=== PATIENT | female | born 1975 | race Caucasian/White ===

== ENCOUNTER 2017-08-15 12:14 | Day surgery (SDC) | payer BC ==
[~2017-08-15] VITALS: Ht 157.5 cm; Wt 80.6 kg
[~2017-08-15 12:14] MED LIST: BUPIVACAINE/PF-EPI 0.25% 1:200K ONE
[2017-08-15 12:52] VITALS: BP 167/108
[2017-08-15] MEDS ORDERED: ACET-1600 PO (12:52)
[2017-08-15] MEDS ORDERED: IBUP-1223 PO (12:52)
[2017-08-15] MEDS ORDERED: LACTATED RINGERS 1,000 ML IV SCH (12:54)
[2017-08-15 13:00] LABS: HCG UR OBC PASS
[2017-08-15 13:11] VITALS: BP 151/102
[2017-08-15] MEDS ORDERED: ROCURONIUM 10 MG/ML ONE (14:12)
[2017-08-15] MEDS ORDERED: ONDANSETRON 2MG/ML, 2ML ONE (14:12)
[2017-08-15] MEDS ORDERED: KETOROLAC 30 MG/1 ML ONE (14:12)
[2017-08-15] MEDS ORDERED: SUCCINYLCHOLINE 20 MG/ML, 10ML ONE (14:12)
[2017-08-15] MEDS ORDERED: PROPOFOL 10 MG/ML, 20ML ONE (14:12)
[2017-08-15] MEDS ORDERED: DEXAMETHASONE 4 MG/ML, 1ML ONE (14:12)
[2017-08-15] MEDS: FENTANYL PF 100 MCG/2ML IV PRN ×4 (15:25→16:04)
[2017-08-15] MEDS ORDERED: MIDAZOLAM 1 MG/ML, 2ML ONE ×2 (15:28→15:38)
[2017-08-15] MEDS ORDERED: ACETAMINOPHEN 650 MG/20.3 ML UDC ONE (15:28)
[2017-08-15] MEDS ORDERED: FENTANYL PF 100 MCG/2ML ONE ×2 (15:28→15:38)
[2017-08-15] MEDS ORDERED: OXYcodone 5 MG/5 ML ORAL.SOL UDC ONE (15:29)
[2017-08-15] MEDS ORDERED: ONDANSETRON 2MG/ML, 2ML IVPush PRN (15:30)
[2017-08-15] MEDS ORDERED: METOCLOPRAMIDE 5 MG/ML, 2ML IV PRN (15:30)
[2017-08-15] MEDS ORDERED: OXYcodone 5 MG/5 ML ORAL.SOL UDC PO PRN (15:30)
[2017-08-15] MEDS ORDERED: LABETALOL 5MG/ML, 20ML IV PRN (15:30)
[2017-08-15] MEDS ORDERED: ACETAMINOPHEN 325 MG TABLET PO PRN (15:30)
[2017-08-15] MEDS: MIDAZOLAM 1 MG/ML, 2ML IV PRN ×4 (15:30→16:05)
[2017-08-15] MEDS ORDERED: hydrALAzine 20 MG/ML, 1ML IV PRN (15:30)
[2017-08-15] MEDS ORDERED: HYDROmorphone 1 MG/ML, 1ML ONE (15:38)
[2017-08-15] MEDS: HYDROmorphone 1 MG/ML, 1ML IV PRN ×2 (15:42→15:54)
[2017-08-15] MEDS ORDERED: MEPERIDINE/PF 25MG/0.5ML ONE (16:06)
[2017-08-15] MEDS ORDERED: MEPERIDINE/PF 25MG/0.5ML IVPush ONE (16:30)
[2017-08-15] MEDS ORDERED: HYDROmorphone 2 MG/ML, 1ML IVPush PRN (17:30)
[2017-08-15] MEDS ORDERED: HYDROmorphone 2 MG/ML, 1ML ONE (17:33)
== END 2017-08-15 18:40 | disposition home or self-care (01) ==
LOC: OUT 12:14
PROVIDERS: ATTEND Specialist
DX: N94.10 Unspecified dyspareunia (principal); N93.9 Abnormal uterine and vaginal bleeding, unspecified; Z53.8 Procedure and treatment not carried out for other reasons; Z88.6 Allergy status to analgesic agent; Z88.1 Allergy status to other antibiotic agents; Z80.0 Family history of malignant neoplasm of digestive organs
CPT/HCPCS: 58563; 58662; 81025; 88305; J0330; J1100; J1170; J1885; J2175; J2250; J2405; J2704; J3010; J7120